=== PATIENT | female | born 1965 | race African-American/Black ===

== ENCOUNTER 2018-03-17 23:06 | Emergency (ER) | payer OTHER ==
[2018-03-17 23:10] VITALS: BP 162/82; PULSE 96; TEMP 97.8; BMI 25.3
[2018-03-17] MEDS ORDERED: guaiFENesin/CODEINE 10 ML UNIT-DOSE CUPS PO ONE (23:47)
[2018-03-17] MEDS ORDERED: diphenhydrAMINE HCL 25 MG CAPSULE (FP) PO ONE (23:47)
[2018-03-17] MEDS ORDERED: PHENYLEPHRINE 0.5% NASAL SPRAY 15 ML BOTTLE NS ONE (23:47)
--- NOTE | 2018-03-17 23:57 | PDOC ---
History of Present Illness - General Chief Complaint: Cold Symptoms Stated Complaint: COLD SYMPTOMS Time Seen by Provider: 03/17/18 23:34 History Source: Patient Exam Limitations: No Limitations - History of Present Illness Initial Comments: 03/17/18 23:59 The patient is a 52F with no PMH who presents to the ER with complaints of a cough for 2 weeks. The patient states that she's had a constant cough x 2 weeks. The cough has caused her a headache and sore throat only when she coughs. She denies fevers, chills, nausea, vomiting, myalgias, congestion, CP, SOB. She states that her PCP has given her abx and prednisone without any relief in her symptoms. She has not taken any other medications. Past History - Past Medical History Allergies/Adverse Reactions: Allergies Allergy/AdvReac Type Severity Reaction Status Date / Time No Known Drug Allergies Allergy Verified 03/17/18 23:10 Home Medications: Ambulatory Orders Naproxen Sodium [Aleve] 220 mg PO PRN PRN 10/09/14 Omeprazole Magnesium [Prilosec (OTC)] 20 mg PO DAILY 10/09/14 Albuterol Sulfate Inhaler - [Ventolin HFA Inhaler -] 1 - 2 inh PO Q4H PRN #1 inhaler 03/18/18 Azithromycin [Zithromax 250mg Tablets -] 250 mg PO UTDICT #6 tab 03/18/18 Diphenhydramine HCl [Benadryl -] 25 mg PO Q8H #21 capsule 03/18/18 Hydrocodone Bit/Homatrop Me-Br [Hydrocodone-Homatropine Syrup] 5 ml PO HS PRN # 30 ml MDD 5mL 03/18/18 COPD: No - Suicide/Smoking/Psychosocial Hx Smoking History: Never smoked Hx Alcohol Use: No Drug/Substance Use Hx: No Substance Use Type: None Hx Substance Use Treatment: No Review of Systems - Review of Systems Able to Perform ROS?: Yes Comments:: 03/18/18 00:03 GENERAL/CONSTITUTIONAL: No fever or chills. No weakness. HEAD, EYES, EARS, NOSE AND THROAT: No change in vision. No ear pain or discharge. No sore throat. CARDIOVASCULAR: No chest pain, palpitations, or lightheadedness. RESPIRATORY: Positive for cough. No wheezing, shortness of breath, or hemoptysis. GASTROINTESTINAL: No nausea, vomiting, diarrhea, constipation, or abdominal pain. GENITOURINARY: No dysuria, frequency, hematuria, or change in urination. MUSCULOSKELETAL: No joint or muscle swelling or pain. No neck or back pain. SKIN: No rash or lesions. NEUROLOGIC: No headache, numbness, tingling, focal weakness, loss of consciousness, or change in strength/sensation. Is the patient limited Kazakh proficient: No *Physical Exam - Vital Signs Last Vital Signs Temp Pulse Resp BP Pulse Ox 97.8 F 96 H 18 162/82 100 03/17/18 23:08 03/17/18 23:08 03/17/18 23:08 03/17/18 23:08 03/17/18 23:08 - Physical Exam Comments: 03/18/18 00:03 GENERAL: Well developed, well nourished. Awake and alert. No acute distress. HEENT: Normocephalic, atraumatic. Hearing grossly normal. Moist mucous membranes. PERRLA, EOMI. No conjunctival pallor. NECK: Supple. Full ROM. No JVD. CARDIOVASCULAR: Regular rate and rhythm. No murmurs, rubs, or gallops. PULMONARY: No evidence of respiratory distress. R sided expiratory rales. ABDOMINAL: Soft. Non-tender. Non-distended. No rebound or guarding. GENITOURINARY: No CVA tenderness bilaterally. MUSCULOSKELETAL: Normal range of motion at all joints. No bony deformities or tenderness. EXTREMITIES: No cyanosis. No clubbing. No edema. No calf tenderness or swelling. SKIN: Warm and dry. Normal capillary refill. No rashes. No jaundice. NEUROLOGICAL: Alert, awake, appropriate. Cranial nerves 2-12 grossly intact. Normal speech. Gait is normal without ataxia. PSYCHIATRIC: Cooperative. Good eye contact. Appropriate mood and affect. Moderate Sedation - Procedure Monitoring Vital Signs: Procedure Monitoring Vital Signs Temperature 97.8 F 03/17/18 23:08 Pulse Rate 96 H 03/17/18 23:08 Respiratory Rate 18 03/17/18 23:08 Blood Pressure 162/82 03/17/18 23:08 O2 Sat by Pulse Oximetry (%) 100 03/17/18 23:08 ED Treatment Course - RADIOLOGY Radiology Studies Ordered: Category Date Time Status CHEST PA & LAT [RAD] Stat Radiology 03/17/18 23:48 Ordered Medical Decision Making - Medical Decision Making 03/18/18 00:05 The patient is a 52F with no PMH who presents with 2 days of cough with no other symptoms. PE reveals expiratory rales. Will order CXR and treat symptomatically. Pending imaging and treatment. 03/18/18 03:05 CXR negative. Pt states she feels "much better". Will d/c with abx, anti- tussive meds, and inhaler with PCP f/u. *DC/Admit/Observation/Transfer Diagnosis at time of Disposition: Cough - Discharge Dispostion Disposition: HOME Condition at time of disposition: Stable Decision to Admit order: No - Prescriptions Prescriptions: Albuterol Sulfate Inhaler - [Ventolin HFA Inhaler -] 1 - 2 inh PO Q4H PRN #1 inhaler PRN Reason: Cough Azithromycin [Zithromax 250mg Tablets -] 250 mg PO UTDICT #6 tab Diphenhydramine HCl [Benadryl -] 25 mg PO Q8H #21 capsule Hydrocodone Bit/Homatrop Me-Br [Hydrocodone-Homatropine Syrup] 5 ml PO HS PRN # 30 ml MDD 5mL PRN Reason: Cough - Referrals Referrals: Leelee Jorgensen MD [Primary Care Provider] - - Patient Instructions Printed Discharge Instructions: How to Avoid a Cold or Flu Additional Instructions: Please follow up with your primary care physician in 2-3 days. Please return to the ER if you have any signs or symptoms of chest pain, shortness of breath, uncontrollable fever, chills, nausea, vomiting, numbness, tingling, or weakness in any part of your body, changes in vision, or slurred speech. Please take your medications as prescribed. Please return to the ER if symptoms persist, worsen, or new symptoms arise. - Post Discharge Activity
[2018-03-18] MEDS ORDERED: ALBUTEROL SO4 2.5/IPRATROPIUM 0.5 INH SOL 3 ML VIAL.NEB. NEB ONE ×2 (00:12→00:42)
--- NOTE | 2018-03-18 00:16 | PDOC ---
Attending Attestation - Resident Resident Name: ShantanudonnieRambo - ED Attending Attestation I have performed the following: I have examined & evaluated the patient, The case was reviewed & discussed with the resident, I agree w/resident's findings & plan - HPI HPI: 03/18/18 00:13 Healthy 52-year-old female nonsmoker presents with 2 weeks of persistent nasal congestion, sinus congestion, and dry cough. No chest pain or shortness of breath, was seen by her PCP and started on amoxicillin and steroids, has 1 day remaining of each. Presents today for persistent cough, no fevers or chills or myalgias. 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 - Physicial Exam PE: 03/18/18 00:14 Vitals are within normal limits including O2 sat of 100% on room air Positive dry hacking cough, otherwise speaking full sentences and not cachectic Positive nasal congestion, oropharynx injected but no plaques or exudates or swelling No stridor Scattered inspiratory and expiratory wheezing bilaterally without prolonged expiration or focally decreased breath sounds, no accessory muscle use Heart is regular No leg swelling or calf tenderness - Medical Decision Making 03/18/18 00:15 52-year-old female with upper respiratory infection, likely viral but given duration rule out underlying pneumonia. No Sirs or sepsis, O2 sat normal on room air. not consistent with cardiac etiology. Chest x-ray Trial of nebulizer Patient does not have her prednisone prescription so unclear whether dosing was adequate reassess
[2018-03-18] MEDS ORDERED: diphenhydrAMINE HCL 25 MG CAPSULE (FP) PO ONE (00:42)
[2018-03-18] MEDS ORDERED: guaiFENesin/CODEINE 5 ML UNIT-DOSE CUPS PO ONE (00:42)
== END 2018-03-18 03:20 | disposition home or self-care (01) ==
LOC: JER 23:06
PROC: 3E0F7GC Introduction of Other Therapeutic Substance into Respiratory Tract, Via Natural or Artificial Opening (ICD-10-PCS; principal; 2018-03-17)
DX: J06.9 Acute upper respiratory infection, unspecified (principal)
CPT/HCPCS: 71046-TC-FY; 99281-25

== ENCOUNTER 2018-11-25 00:32 | Emergency (ER) | payer OTHER ==
[2018-11-25 01:09] VITALS: TEMP 98.4; BMI 50.7
--- NOTE | 2018-11-25 01:12 | PDOC ---
History of Present Illness - General Chief Complaint: Pain Stated Complaint: PELVIC PAIN History Source: Patient Exam Limitations: No Limitations - History of Present Illness Initial Comments: 11/25/18 02:39 53 yo female pmh of fibroids and right ovarian cyst presents to the ED with 3 months of intermittent RLQ abdominal pain. Pt states she has intermittent pain aggravated by movement denies trauma. Pt had TV US 10/10/2018 showing fibroids and ovarian cyst, pt also saw [facility]ELOPER (Dr. Hutchinson) 3 days prior, US done and pt reports same findings without sig cause for pain and discussed re-eval with possible surgical option if indicated. Denies F/C/N/V, back pain, numbness/ tingling or weakness down the leg, changes in bowel or bladder habits, back pain Past History - Past Medical History Allergies/Adverse Reactions: Allergies Allergy/AdvReac Type Severity Reaction Status Date / Time No Known Drug Allergies Allergy Verified 03/17/18 23:10 Home Medications: Ambulatory Orders Multivitamin [One-Daily Multi-Vitamin] 1 each PO DAILY 11/25/18 Naproxen 500 mg PO BID 7 Days #14 tablet 11/25/18 COPD: No Other medical history: Fibroids, - Surgical History Abdominal Surgery: Yes (tubaligation,) - Immunization History Immunization Up to Date: Yes - Suicide/Smoking/Psychosocial Hx Smoking History: Never smoked Have you smoked in the past 12 months: No Information on smoking cessation initiated: No Hx Alcohol Use: No Drug/Substance Use Hx: No Substance Use Type: None Hx Substance Use Treatment: No Review of Systems - Review of Systems Constitutional: Yes: See HPI HEENTM: Yes: See HPI Respiratory: Yes: See HPI Cardiac (ROS): Yes: See HPI ABD/GI: Yes: See HPI : Yes: See HPI Musculoskeletal: Yes: See HPI Integumentary: Yes: See HPI Neurological: Yes: See HPI *Physical Exam - Vital Signs Last Vital Signs Temp Pulse Resp BP Pulse Ox 98.4 F 100 H 20 120/81 100 11/25/18 01:05 11/25/18 01:05 11/25/18 01:05 11/25/18 01:05 11/25/18 01:05 - Physical Exam General Appearance: Yes: Nourished, Appropriately Dressed. No: Apparent Distress HEENT: positive: EOMI Neck: positive: Supple. negative: Carotid bruit Respiratory/Chest: positive: Lungs Clear, Normal Breath Sounds. negative: Respiratory Distress, Accessory Muscle Use, Crackles, Rales, Rhonchi, Stridor, Wheezing Cardiovascular: positive: Regular Rhythm, S1, S2, Tachycardia. negative: Edema , JVD, Murmur Vascular Pulses: Dorsalis-Pedis (R): 4+, Doralis-Pedis (L): 4+ Gastrointestinal/Abdominal: positive: Flat, Soft. negative: Pulsatile Mass, Distended, Guarding, Rebound, Tenderness Musculoskeletal: negative: CVA Tenderness Extremity: positive: Normal Capillary Refill, Other (pain in inguinal crease with ambulation. ) Integumentary: positive: Normal Color, Dry, Warm Neurologic: positive: Fully Oriented, Alert, Normal Mood/Affect, Normal Response , Motor Strength / Medical Decision Making - Medical Decision Making 11/25/18 03:04 right lower quadrant abdominal pain Pt likely has R hip pain due to aggravation on ambulation and location of pain R hip and pelvis X ray show osteophyte and arthritic changes to the R hip Pt has had pain relief with toradol 60 IM Pt safe for DC home with PCP and [facility] f/u Pt understands and agrees with plan *DC/Admit/Observation/Transfer Diagnosis at time of Disposition: Hip pain - Discharge Dispostion Disposition: HOME Condition at time of disposition: Stable Decision to Admit order: No - Prescriptions Prescriptions: Naproxen 500 mg PO BID 7 Days #14 tablet - Referrals Referrals: Jurgen Macias DO [Staff Physician] - - Patient Instructions Printed Discharge Instructions: DI for Osteoarthritis Additional Instructions: Please see your primary doctor within the next 48 hours and see your [facility] DEVEL[facility] doctor as soon as possible. Take the medication sent to your pharmacy as prescribed and make an appointment to see the Orthopedic Surgeon referred to you. Return to the ER for new or concerning symptoms including but not limited to: severe pain, inability to walk, high fevers. Thank you - Post Discharge Activity
--- NOTE | 2018-11-25 02:19 | PDOC ---
Attending Attestation - Resident Resident Name: Steve Galicia - ED Attending Attestation I have performed the following: I have examined & evaluated the patient, The case was reviewed & discussed with the resident, I agree w/resident's findings & plan, Exceptions are as noted - HPI HPI: 11/25/18 04:04 53F pmh fibroids, R ovarian cyst here with episodic RLQ abd px. Px is aggravated by movement, improves with rest, usually worsens over the day. No other complaints. - Physicial Exam PE: 11/25/18 04:05 Agree with exam as documented by resident - Medical Decision Making 11/25/18 04:05 Consider beginnings of arthritis px analgesia f/u xr re-eval
[2018-11-25 02:21] LABS: PH,URINE 6.5 (5.0-8.0); URINE APPEARANCE CLEAR; URINE BILIRUBIN NEGATIVE (NEGATIVE); URINE COLOR YELLOW; URINE GLUCOSE (UA) NEGATIVE (NEGATIVE); URINE KETONE NEGATIVE (NEGATIVE); URINE LEUK ESTERASE NEGATIVE (NEGATIVE); URINE NITRITE NEGATIVE (NEGATIVE); URINE PROTEIN NEGATIVE (NEGATIVE); URINE UROBILINOGEN 0.2 mg/dL (0.2-1.0)
[2018-11-25] MEDS ORDERED: KETOROLAC TROMETHAMINE 60 MG/2 ML VIAL IM ONE (02:27)
[2018-11-25] MEDS ORDERED: KETOROLAC TROMETHAMINE 60 MG/2 ML VIAL ONE (02:38)
[2018-11-25 03:51] VITALS: BP 106/79; PULSE 80
== END 2018-11-25 03:51 | disposition home or self-care (01) ==
LOC: JER 00:32
PROC: 3E0233Z Introduction of Anti-inflammatory into Muscle, Percutaneous Approach (ICD-10-PCS; principal; 2018-11-25)
DX: M25.551 Pain in right hip (principal)
CPT/HCPCS: 73523-TC-FY; 81003; 99283-25

== ENCOUNTER 2019-06-12 19:01 | Emergency (ER) | payer OTHER ==
[2019-06-12 19:40] VITALS: BP 119/83; PULSE 120; TEMP 100; BMI 26.4
[2019-06-12] MEDS ORDERED: ACETAMINOPHEN 500 MG TABLET (FP) PO ONE (20:50)
--- NOTE | 2019-06-12 20:56 | PDOC ---
History of Present Illness - General Chief Complaint: Cold Symptoms Stated Complaint: COLD SYMPTOMS Time Seen by Provider: 06/12/19 19:37 - History of Present Illness Initial Comments: 06/12/19 20:53 54-year-old female with rheumatoid arthritis on methotrexate and folic acid presents for evaluation of cough x2 days with fever Past History - Past Medical History Allergies/Adverse Reactions: Allergies Allergy/AdvReac Type Severity Reaction Status Date / Time No Known Drug Allergies Allergy Verified 06/12/19 19:37 Home Medications: Ambulatory Orders Multivitamin [One-Daily Multi-Vitamin] 1 each PO DAILY 11/25/18 Naproxen 500 mg PO BID 7 Days #14 tablet 11/25/18 Oseltamivir Phosphate [Tamiflu] 75 mg PO BID #10 capsule 06/12/19 COPD: No Other medical history: DENIES - Surgical History Abdominal Surgery: Yes (tubaligation,) - Reproductive History Tubal Ligation: Yes - Immunization History Immunization Up to Date: Yes - Psycho Social/Smoking Cessation Hx Smoking History: Never smoked Have you smoked in the past 12 months: No Hx Alcohol Use: No Drug/Substance Use Hx: No Substance Use Type: None Hx Substance Use Treatment: No Review of Systems - Review of Systems Constitutional: Yes: Chills, Fever, Malaise, Night Sweats Respiratory: Yes: Cough *Physical Exam - Vital Signs Last Vital Signs Temp Pulse Resp BP Pulse Ox 100.0 F H 120 H 20 119/83 98 06/12/19 19:38 06/12/19 19:38 06/12/19 19:38 06/12/19 19:38 06/12/19 19:38 - Physical Exam 06/12/19 20:53 GENERAL: The patient is awake, alert, and fully oriented, in no acute distress. HEAD: Normal with no signs of trauma. EYES: sclera anicteric, conjunctiva clear. ENT: Ears normal tympanic membranes normal oropharynx clear uvula midline NECK: Normal range of motion LUNGS: Breath sounds equal, clear to auscultation bilaterally. No wheezes, and no crackles. HEART: S1 and S2 without murmur, rub or gallop. ABDOMEN: Soft, nontender, normoactive bowel sounds. No guarding, no rebound. No masses. EXTREMITIES: Normal range of motion, no edema. No clubbing or cyanosis. No cords, erythema, or tenderness. NEUROLOGICAL: Cranial nerves II through XII grossly intact. PSYCH: Normal mood, normal affect. SKIN: Warm, Dry, normal turgor, no rashes or lesions noted. Medical Decision Making - Medical Decision Making 06/12/19 20:53 We will treat for presumptive flu based on exam findings and length of sickness. I have reviewed the pathophysiology with the patient. They are in agreement with the treatment plan all questions were answered to their satisfaction. Un derstanding for follow-up without fail was also conveyed to the patient. Again they are in agreement. Discharge - Discharge Information Problems reviewed: Yes Clinical Impression/Diagnosis: Flu-like symptoms Condition: Stable Disposition: HOME - Admission No - Follow up/Referral Referrals: Leelee Jorgensen MD [Primary Care Provider] - - Patient Discharge Instructions Additional Instructions: Tylenol Motrin as directed for fever and body aches. Return to the emergency room for worsening symptoms and without fail follow-up with your primary care physician in 1 to 2 days for further evaluation and treatment options. Please take the Tamiflu as directed. - Post Discharge Activity Work/Back to School Note: Back to Work
[2019-06-12] MEDS ORDERED: ACETAMINOPHEN 500 MG TABLET (FP) ONE (21:00)
== END 2019-06-12 21:03 | disposition home or self-care (01) ==
LOC: JERFT 19:01
DX: J11.1 Influenza due to unidentified influenza virus with other respiratory manifestations (principal); M06.9 Rheumatoid arthritis, unspecified; Z98.51 Tubal ligation status
CPT/HCPCS: 99283-25

== ENCOUNTER 2022-03-19 04:15 | Day surgery (SDC) | payer OTHER ==
[2022-03-18 10:02] VITALS: BMI 25.5
[2022-03-19 10:13] VITALS: TEMP 98
[2022-03-19 13:21] VITALS: BP 121/56; PULSE 56; RESP 18
== END 2022-03-19 11:05 | disposition home or self-care (01) ==
LOC: JASU-ENDO 04:15
PROVIDERS: ATTEND Internal Medicine Gastroenterology
PROC: 0DJD8ZZ Inspection of Lower Intestinal Tract, Via Natural or Artificial Opening Endoscopic (ICD-10-PCS; principal; 2022-03-19 09:00)
DX: Z12.11 Encounter for screening for malignant neoplasm of colon (principal); K62.89 Other specified diseases of anus and rectum; K64.8 Other hemorrhoids; I10 Essential (primary) hypertension

== ENCOUNTER 2023-06-04 11:50 | Emergency (ER) | payer OTHER ==
[2023-06-04 11:54] VITALS: BP 148/88; PULSE 107; RESP 18; TEMP 98.8; BMI 26.6
[2023-06-04] MEDS ORDERED: IBUPROFEN 600 MG TABLET (FP) PO ONE (12:46)
[2023-06-04] MEDS ORDERED: LIDOCAINE 4% PATCH TP ONE (12:46)
[2023-06-04 12:49] LABS: BASO % 0.5 % (0-2.0); EOS % 0.6 % (0-4.5); HEMATOCRIT 41.5 % (32.4-45.2); HEMOGLOBIN 14.2 GM/dL (10.7-15.3); LYMPH % 25.4 % (8-40); MCH 29.4 pg (25.7-33.7); MCHC 34.1 g/dl (32.0-36.0); MEAN CELL VOLUME 86.4 fl (80-96); MONO % 6.3 % (3.8-10.2); NEUT % 67.2 % (42.8-82.8); PLATELET COUNT 275 10^3/uL (134-434); RBC 4.81 M/mm3 (3.60-5.2); RDW 13.8 % (11.6-15.6); WHITE BLOOD COUNT 7.4 K/mm3 (4.0-10.0)
[2023-06-04] MEDS: LIDOCAINE 4% PATCH TP ONE (12:51)
[2023-06-04] MEDS: IBUPROFEN 600 MG TABLET (FP) PO ONE (12:52)
[2023-06-04 13:09] LABS: POTASSIUM 4.3 mmol/L (3.5-5.1)
[2023-06-04 13:11] LABS: BLOOD UREA NITROGEN 14.4 mg/dL (7-18); CALCIUM 9.8 mg/dL (8.5-10.1)
[2023-06-04 13:16] LABS: CREATININE 0.9 mg/dL (0.55-1.3)
[2023-06-04 13:17] LABS: BILIRUBIN,TOTAL 0.5 mg/dL (0.2-1)
[2023-06-04] MEDS ORDERED: METHOCARBAMOL 500 MG TABLET ONE (15:04)
[2023-06-04] MEDS ORDERED: ACETAMINOPHEN 325 MG TABLET (FP) ONE (15:04)
[2023-06-04] MEDS: ACETAMINOPHEN 500 MG TABLET (FP) PO ONE (15:07)
[2023-06-04] MEDS: METHOCARBAMOL 750 MG TABLET PO ONE (15:07)
[2023-06-04] MEDS ORDERED: morphine SULFATE 4 MG/ML VIAL ONE (15:45)
[2023-06-04] MEDS: morphine SULFATE 4 MG/ML VIAL IVPUSH ONE (15:49)
[2023-06-04] MEDS ORDERED: LIDOCAINE PATCH REMOVAL MC SCH (22:00)
== END 2023-06-04 17:56 | disposition home or self-care (01) ==
LOC: JER 11:50
PROC: 3E033NZ Introduction of Analgesics, Hypnotics, Sedatives into Peripheral Vein, Percutaneous Approach (ICD-10-PCS; principal; 2023-06-04)
DX: R07.9 Chest pain, unspecified (principal); M25.512 Pain in left shoulder; M54.6 Pain in thoracic spine; R20.2 Paresthesia of skin
CPT/HCPCS: 36415; 71046-TC-FY; 71275-TC; 80053; 84484; 85025; 93005; 93010; 99285-25; Q9967